=== PATIENT | male | born 1995 | race Caucasian/White ===

== ENCOUNTER 2018-03-01 03:15 | Emergency (ER) | payer OTHER ==
[~2018-03-01] VITALS: Ht 182.9 cm; Wt 70.3 kg
[~2018-03-01 03:15] MED LIST: HYDR1TAB PO
--- OUTSIDE RECORDS SUMMARY | 2018-03-01 03:22 | XMS REPORT ---
Author Author JAYNE WU [facility] Address [address] [place] [address] Care Team Providers Care Web Development Instructor Name Role Phone JAYNE WU Unavailable PROBLEMS Unknown Problems ALLERGIES No Information SOCIAL HISTORY Never Assessed PLAN OF CARE VITAL SIGNS MEDICATIONS Unknown Medications RESULTS No Results PROCEDURES Procedure Date Ordered Result Body Site TDAP (BOOSTRIX) August 29, 2016 SINGLE IMMUNIZATION ADMIN August 29, 2016 IMMUNIZATIONS Vaccine Route Administration Date Status TDAP (BOOSTRIX) IM Intramuscular August 29, 2016 Administered
--- OUTSIDE RECORDS SUMMARY | 2018-03-01 03:22 | XMS REPORT ---
Author Author JAYNE WU [facility] Address [address] [place] [address] Care Team Providers Care Parts Analyst Name Role Phone JAYNE WU Unavailable PROBLEMS Unknown Problems ALLERGIES No Information ENCOUNTERS Encounter Location Date Diagnosis [facility] [address] [facility] [id number] [address] August, [facility] [id number] [address] August, Encounter for immunization Z23 IMMUNIZATIONS No Known Immunizations SOCIAL HISTORY Never Assessed REASON FOR VISIT Requests return call PLAN OF CARE VITAL SIGNS MEDICATIONS Unknown Medications RESULTS No Results PROCEDURES No Known procedures INSTRUCTIONS MEDICATIONS ADMINISTERED No Known Medications
--- NOTE | 2018-03-01 03:43 | ED GI ---
General Chief Complaint: Abdominal/GI Problems Stated Complaint: VOMITING,PANIC ATTACK,DIARRHEA,TROUBLE MOVING Nursing Triage Note: n/v/d anxiety x1 day Sepsis Screen: No Definite Risk Source of Information: Patient, Family (dad) Exam Limitations: No Limitations History of Present Illness Date Seen by Provider: Mar 01, 2018 Time Seen by Provider: 03:30 Initial Comments Patient presents to ER by private conveyance with his father and a chief complaint that since 1800 yesterday approximately 9 hours she has had nausea vomiting and diarrhea along with body aches. He has not checked for a fever. He did recently get back from vacation in the [facility] night at Thanksgiving dinner his nephew, sisters and other family members all had a viral diarrhea nausea vomiting. They'll get over about 24 hours and or better now. He does not have any significant medical problems nor does he take any medicines nor have any history of surgeries or trauma. He did take some Pepto-Bismol but it did not help much. He's not been able to drink and is getting very dry. He says he was laying there feeling very poorly and started having what he thought was a panic attack being very anxious and scared and breathing fast and then felt his fingers getting tingly. He says it's now improving. He does not have a history of panic attacks. Allergies and Home Medications Allergies Coded Allergies: Cefprozil (Verified Allergy, Mild, 12/21/08) Patient Home Medication List Home Medication List Reviewed: Yes Review of Systems Review of Systems Constitutional: chills; No fever; malaise EENTM: No Blurred Vision, No Double Vision Respiratory: Denies Cough, Denies Shortness of Air Cardiovascular: Denies Chest Pain, Denies Palpitations, Denies Syncope Gastrointestinal: Denies Abdomen Distended, Denies Abdominal Pain Genitourinary: Denies Burning, Denies Discharge Musculoskeletal: No back pain, No joint pain Skin: No pruritus, No rash Psychiatric/Neurological: Denies Headache, Denies Numbness Past Tqkegoy-Lulfnz-Hgntcn Hx Patient Social History Alcohol Use: Denies Use Recreational Drug Use: No Smoking Status: Never a Smoker 2nd Hand Smoke Exposure: No Recent Foreign Travel: No Contact w/Someone Who Travel: No Recent Infectious Disease Expo: No Recent Hopitalizations: No Immunizations Up To Date Tetanus Booster (TDap): Unknown PED Vaccines UTD: Yes Seasonal Allergies Seasonal Allergies: No Past Medical History Surgeries: No Respiratory: No Cardiac: No Neurological: No Genitourinary: No Gastrointestinal: No Musculoskeletal: No Endocrine: No HEENT: No Cancer: No Psychosocial: No Integumentary: No Blood Disorders: No Physical Exam Vital Signs Vital Signs - First Documented 03/01/18 03:25 Temp 97.8 Pulse 73 Resp 18 B/P (MAP) 104/73 (83) Pulse Ox 99 O2 Delivery Room Air Capillary Refill : Less Than 3 Seconds Height/Weight/BMI Height: 6'0" Weight: 155lbs. oz. 70.712377xg; BMI Method:Stated General Appearance: WD/WN, mild distress HEENT: PERRL/EOMI, pharynx normal (oral mucosa is moist) Respiratory: chest non-tender, lungs clear, normal breath sounds, no respiratory distress, no accessory muscle use Cardiovascular: normal peripheral pulses, regular rate, rhythm, no edema Gastrointestinal: normal bowel sounds (active), non tender, soft Extremities: normal inspection, no pedal edema, normal capillary refill Progress/Results/Core Measures Results/Orders My Orders Orders - MYRA JOHNSON Ondansetron Oral Dissolve Tab (Zofran (03/01/18 03:45) Ibuprofen Tablet (Motrin Tablet) (03/01/18 03:45) Medications Given in ED Current Medications Medications Dose Ordered Sig/Cassie Route Start Time Stop Time Status Last Admin Dose Admin Ibuprofen 600 mg ONCE ONCE PO 03/01/18 03:45 03/01/18 03:47 DC 03/01/18 03:44 600 MG Ondansetron HCl 4 mg ONCE ONCE PO 03/01/18 03:45 03/01/18 03:47 DC 03/01/18 03:43 4 MG Vital Signs/I&O 03/01/18 03:25 Temp 97.8 Pulse 73 Resp 18 B/P (MAP) 104/73 (83) Pulse Ox 99 O2 Delivery Room Air Blood Pressure Mean: 83 Progress Progress Note #1: Time: 03:42 Progress Note Patient has normal vital signs. He does describe a sense of panic attack. He has a moist oral mucosa. We'll going to trial some Zofran and oral fluid challenge. We'll offer him some ibuprofen if he can tolerate that then he be okay to go home take pills and get over this. If however he does not get over the next day or 2 like the rest of his family dad then we would encourage him to follow-up with his primary care provider. He does not have any bloody diarrhea, fevers or other evidence of sepsis that would make me think that there is some kind of more serious parasitic or bacterial infectious colitis. Progress Note #2: Time: 04:19 Progress Note The patient's nausea is now gone. His body aches are much improved after the ibuprofen and he is able to tolerate the oral fluid challenge. We will allow him to go home with some take-home pack of Zofran and follow up outpatient as necessary. Departure Impression Primary Impression: Gastroenteritis and colitis, viral Disposition: 01 HOME, SELF-CARE Condition: Improved Departure-Patient Inst. Decision time for Depature: 04:19 Referrals: JEANNETTE MACHUCA MD (PCP/Family) Primary Care Physician Patient Instructions: Viral Gastroenteritis, Adult (DC) Add. Discharge Instructions: Drink lots of fluids. Gatorade is encouraged. Use the Zofran 1 tablet under the tongue every 6 hours as needed for nausea. If your diarrhea goes on for more than 24-48 hours and you cannot keep up with fluid intake then you may use 2 tablets of Imodium followed by one tablet every 4 hours afterwards if you're still having watery stools. If you're symptoms go on for a few more days then you might follow up with primary care for reevaluation. All discharge instructions reviewed with patient and/or family. Voiced understanding. Scripts Ondansetron (Ondansetron Odt) 4 Mg Tab.rapdis 4 MG PO Q6H PRN for NAUSEA/VOMITING, #8 TAB 0 Refills Prov: MYRA JOHNSON 03/01/18 MYRA JOHNSON Mar 01, 2018 03:43
[2018-03-01] MEDS ORDERED: IBUPROFEN 600 MG (MOTRIN) TAB PO ONE (03:45)
[2018-03-01] MEDS ORDERED: ONDANSETRON 4 MG (ZOFRAN) ORAL DISSOLVE TAB PO ONE (03:45)
[2018-03-01] MEDS ORDERED: ONDA4TAB11 PO (04:21)
[2018-03-01] MEDS ORDERED: RX-ONDANSETRON 4 MG ODT (ZOFRAN) PPK #4 PO STA (04:22)
[2018-03-01 04:29] VITALS: BP 104/73
== END 2018-03-01 04:28 | disposition home or self-care (01) ==
LOC: EDUNIT# 03:15 → ER 03:18
DX: A08.4 Viral intestinal infection, unspecified (principal); Z88.8 Allergy status to other drugs, medicaments and biological substances
CPT/HCPCS: 99283